=== PATIENT | female | born 1995 | race Caucasian/White ===

== ENCOUNTER → 2016-05-14 | Outpatient (CLI) | payer BC ==
--- NOTE | ~2016-05-14 | EE ---
Unit #: [id number] #: [id number] Patient: CAMRYN MORALEZ [id number] [address] [address] [id number] O MR#: [id number] NAME: CAMRYN MORALEZ : 1995 SEX: F STUDY DATE/TIME: 05/14/2016 UNIT: CEEG ROOM: STUDY DESCRIPTION: EEG Attending Physician: Tyson Montesinos II., M.D. Referring Physician: Tyson Montesinos II., M.D. Primary Care Physician: Nathaly Collado M.D. NEURODIAGNOSTICS REPORT EXAM EEG REASON FOR STUDY Seizures. TECH Natural Convergence TECHNICAL INFORMATION This is a routine EEG performed using the standard International 10-20 System of electrode placement. Photic stimulation was performed. Hyperventilation was also performed. REPORT Throughout the entire study, the best background rhythm seen is approximately 10 Hz. This rhythm is seen in both posterior head regions symmetrically and does attenuate to eye opening and closure. Photic stimulation was performed which did not elicit any epileptiform abnormalities. However, a good photic driving response was seen. There was a significant amount of motion artifact noted during photic stimulation. Hyperventilation was also performed which failed to reproduce any abnormal buildup. Again, there was significant motion artifact. Throughout the entire study, there were no electrographic seizures recorded. There were no independent epileptiform abnormalities seen. No sleep recorded during the EEG. INTERPRETATION Normal awake EEG. A normal EEG does not rule out the possibility of seizure disorder. Clinical correlation is advised. Dictated by... Tyson Montesinos II., M.D. GWS/cris TD: 05/16/2016 05:38 JOB #: [id number] Unit #: [id number] #: [id number] Patient: CAMRYN MORALEZ NEURODIAGNOSTICS REPORT X NEURODIAGNOSTICS REPORT
== END | disposition home or self-care (01) ==
LOC: CEEG 09:59
DX: G43.909 Migraine, unspecified, not intractable, without status migrainosus (principal)
CPT/HCPCS: 95816